=== PATIENT | male | born 1980 | race Caucasian/White ===

== ENCOUNTER 2019-09-16 08:38 | Outpatient (CLI) | payer SELFPAY ==
[2019-09-16 09:10] VITALS: BMI 38.3
--- NOTE | 2019-09-16 09:11 | ECG_ITS ---
NAME OF STUDY: EXERCISE SESTAMIBI STRESS TEST INDICATION: Chest Pain Baseline blood pressure of 125/76 mm Hg, heart rate 75 beats per minute and oxygen saturation 96%. EKG showed normal sinus rhythm, normal axis with nonspecific minimal ST depression. The patient exercised for 6 minutes 25 seconds on a standard Jose protocol. Patient attained a maximum heart rate of 165 beats per minute(92 % of the maximum predicted heart rate) with a blood pressure at the peak exercise of 190/57 mm Hg and oxygen saturation of 95%. The EKG at the peak exercise revealed sinus tachycardia with half to [address] depression not meeting diagnostic criteria for ischemia. Patient did not have any chest pain or any significant arrhythmias with the exercise. During the recovery phase, there were no new changes. There is [address] depression late in recovery with T wave inversion in inferolateral leads. Blood pressure at the end of the recovery phase was 159/77 mm Hg with a heart rate of 99 beats per minute and oxygen saturation 98%. CONCLUSION: 1. Equivocal EKG response to treadmill exercise. 2. No exercise-induced chest pain or cardiac arrhythmia 3. Fair exercise tolerance, attained a maximum of 10.2 METs. Maximum VO2 of 35.7 mL/kg/min. 4. Baseline normal blood pressure with normal response to exercise. 5. Perfusion scan will be documented separately. Electronically Signed On 09-18-2019 16:54:15 CDT by Lelia Amaya M.D. [id number]
--- NOTE | 2019-09-16 09:11 | NMCV_ITS ---
NM lester perf SPECT r/s* [id number] Blade Kasper Age: 39 Gender: M : 1980 Exam Date: 09/16/2019 09:59 Ordering Phys: Lelia Amaya MD ([email or web address]) Technologist: ZOILA Alvarado Exam [facility] Indications: Chest pain STRESS TEST Please see separate stress test report in [facility] for full findings IMAGE PROTOCOL Rest/Stress 1 Exercise Day Radiopharmaceutical Dose (mCi) Administration Site Administered by Rest: Tc-99m 10.5 IV ZOILA Ragland Sestamibi Stress:Tc-99m 32.7 IV ZOILA Alvarado Sestamimariana Rest: 16-Sep-2019 60 Discovery 630 Stress: 16-Sep-2019 15 Discovery 630 Radiopharmaceutical was injected at 85 % maximum heart rate. Images obtained in supine and prone position. SPECT RESULTS Technical Quality: Good Raw Data Analysis: Normal Image Corrections: No attenuation or motion correction applied Summed Stress Score: 4 Summed Rest Score: 2 Summed Difference Score: 2 PERFUSION FINDINGS Small size perfusion abnormality of mild severity of basal to mid inferolateral and apical lateral wall on rest images with mild reversibility noted in mid to apical inferolateral wall on supine stress images. There is improved tracer uptake in basal to mid inferolateral wall on prone stress images. This is likely suggestive of attenuation artifact. FUNCTIONAL RESULTS (calculated via Gated SPECT) Stress Image LV EF (%): 60 Stress EDV (mL):96 TID: 1.07 Stress ESV (mL):38 FUNCTIONAL FINDINGS: The left ventricle is normal in size. Transient Ischemia Dilatation of 1.1. There is normal left ventricular systolic function. The left ventricular ejection fraction is normal with a value of 60%. There is normal left ventricular wall thickening. Normal end-diastolic and end-systolic volumes. IMPRESSIONS 1. Small size perfusion abnormality of mild severity of basal to mid inferolateral and apical lateral tai with improved tracer uptake in basal to mid inferolateral tai on prone stress images. 2. These findings are very likely suggestive of attenuation artifact. 3. Overall left ventricular systolic function is normal without regional wall motion abnormalities. 4. The left ventricular ejection fraction is normal with a value of 60%. 5. No coronary ischemia based on the study. Lelia Amaya MD (Electronically Signed) Final Date: 19 Sep 2019 14:42 S
[2019-09-16 10:59] VITALS: BP 165/71; PULSE 100
== END 2019-09-16 08:39 | disposition home or self-care (01) ==
LOC: RAD 08:40
PROVIDERS: Family Provider Internal Medicine; PCP Family Medicine; Visit Provider Hospitalist
DX: R07.9 Chest pain, unspecified (principal); R94.39 Abnormal result of other cardiovascular function study
CPT/HCPCS: 78452; 93017; A9500

== ENCOUNTER 2021-06-03 02:06 | Emergency (ER) | payer OTHER, SELFPAY ==
[2021-06-03 02:18] VITALS: BP 133/101; PULSE 129; RESP 18; TEMP 37.2; O2SAT 95; BMI 38.3
--- NOTE | 2021-06-03 02:42 | XRR_ITS ---
PROCEDURE INFORMATION: Exam: XR Chest Exam date and time: 06/03/2021 2:42 AM Age: 41 years old Clinical indication: Pain; On breathing; Additional info: Cp TECHNIQUE: Imaging protocol: XR of the chest. Views: 1 view. COMPARISON: CR Chest 1 [place] [id number] 05/12/2015 4:39 AM FINDINGS: Lungs: There are low lung volumes. Otherwise, the lungs are clear. Pleural spaces: Unremarkable. No pleural effusion. No pneumothorax. Heart/Mediastinum: Unremarkable. No cardiomegaly. Bones/joints: Unremarkable. XR/XR chest 1V portable [id number] IMPRESSION: There are low lung volumes. Otherwise, the lungs are clear.
--- NOTE | 2021-06-03 02:42 | ECG_ITS ---
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1980 Requested By: Victor Manuel Ordonez Order Number: [id number] Reading MD: CARLOS MAXWELL Measurements Intervals [place] Rate: 129 P: 66 HI: 159 QRS: 79 QRSD: 91 T: 73 QT: 334 QTc: 490 Interpretive Statements SINUS TACHYCARDIA NONSPECIFIC ST & T-WAVE ABNORMALITY ABNORMAL RHYTHM ECG Compared to ECG 05/12/2015 04:18:16 Sinus rhythm no longer present Possible ischemia no longer present T-wave abnormality still present Electronically Signed On 06-03-2021 19:16:55 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
[2021-06-03 02:55] VITALS: BP 165/107; PULSE 118; RESP 20; TEMP 36.8; O2SAT 94
--- NOTE | 2021-06-03 03:05 | PC.NURSE ---
patient states shaking/tremors worsened at 1600 yesterday. states tremors are normal adn benign but are now worse. states heart rate elevated. increased SOB. respirations even equal and unlabored. noted with shaking to entire body nd can be heard in his voice when speaking.
[2021-06-03 03:10] LABS: Basophils % 0.2 %; Eosinophils # 0.1 10^3/uL (0.0-0.8); Hematocrit 44.8 % (42.0-52.0); Hemoglobin 15.1 g/dL (11.7-16.6); Lymphocytes # 1.8 10^3/uL (0.8-4.8); Lymphocytes % 13.8 %; Mean Corpuscular HGB Conc 33.7 g/dL (30.0-36.0); Mean Corpuscular Hemoglobin 29.7 pg (28.0-34.0); Mean Platelet Volume 9.6 fL (7.4-10.4); Monocytes # 0.7 10^3/uL (0.2-0.9); Monocytes % 5.5 %; Neutrophils # 10.18 10^3/uL (1.8-7.7); Neutrophils % 79.1 %; Nucleated Red Blood Cells % 0 %; Platelet Count 323 10^3/cmm (130-400); Red Blood Count 5.09 10^6/uL (4.1-5.3); Red Cell Distribution Width 12.6 % (12.1-15.1); White Blood Count 12.9 10^3/uL (4.0-10.0)
[2021-06-03 03:21] LABS: D Dimer <= 0.27 ug/mIFEU (0-0.59)
[2021-06-03 03:28] LABS: Troponin(5th) Baseline 6 ng/L (0-15)
[2021-06-03 03:35] LABS: NT Pro B Type Natriuretic Pept 11 pg/mL (0-125); Procalcitonin 0.05 ng/mL (0-0.5)
[2021-06-03 03:46] LABS: Alanine Aminotransferase 17 U/L (0-41); Albumin Level 4.1 g/dL (3.5-5.2); Alkaline Phosphatase 140 IU/L (40-130); Aspartate Amino Transferase 18 U/L (0-40); Blood Urea Nitrogen 12 mg/dL (6-20); Calcium 8.8 mg/dL (8.5-10.5); Carbon Dioxide 22 mmol/L (22-29); Chloride 100 mmol/L (98-107); Globulin 3.2 g/dL (1.3-4.6); Glomerular Filtration Rate 92.1 mL/min (90-130); Glucose 155 mg/dL (65-115); Osmolality Calculated 279 mOsm/kg (285-295); Sodium 133 mmol/L (136-145); Total Bilirubin 0.3 mg/dL (0.15-1.2); Total Protein 7.3 g/dL (6.6-8.7)
[2021-06-03 03:54] VITALS: BP 158/109; PULSE 109; RESP 20; TEMP 36.7; O2SAT 94
[2021-06-03] MEDS: metoprolol tartrate 1 mg/1 mL SDV 5 mL 5 MG IVP (03:55)
--- NOTE | 2021-06-03 04:42 | ECG_ITS ---
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
[2021-06-03 05:11] LABS: Troponin 5 2HR 8.96 ng/L (0-15)
[2021-06-03 06:45] LABS: SARS Covid-2 Antigen Negative (Negative)
--- NOTE | 2021-06-03 07:16 | PC.NURSE ---
Nothing charted on this patient by the previous nurse for at least 5 hrs. Pt was up for DC upon this nurse's arrival.
[2021-06-03] MEDS: dexamethasone 10 mg/mL INJ 6 MG IVP (07:18)
[2021-06-03] MEDS: doxycycline 100 mg Tablet PO (07:19)
[2021-06-03 07:51] LABS: Troponin 5 2HR Delta 2.96 ABS# (0-10)
--- NOTE | 2021-06-03 08:14 | ED_ITS ---
HPI - Chest Pain General: Chief Complaint: Chest Pain Stated Complaint: Chest pressure, SOB, high heart rate Time Seen by Provider: 06/03/21 02:42 Source: patient History of Present Illness: 41-year-old gentleman complaining of some mild shortness of breath, mild cough, for the last couple of days. He notes his heart rate is up as well he has a history of diabetes he tells me. No known contacts with Covid patients. He has had some chest pressure, no significant pain No history of coronary disease. MD complaint: chest discomfort and other Onset (ago): day(s) Pain radiation: none Quality: tightness and aching Relieving factors: nothing Exacerbating factors: nothing Associated symptoms: Reports dyspnea; Deny abdominal pain, fever(s), nausea or vomiting Risk Factors: Coronary artery disease risk factors: diabetes and smoking history Review of Systems Const: Denies: fever(s) or chills ENMT: Denies: throat pain Card: Reports: chest pain (More pressure than pain) Resp: Reports: dyspnea and non-productive cough; Denies: productive cough GI: Denies: abdominal pain, nausea or vomiting PFSH ED PFSH: Medical History (Updated 06/03/21 @ 06:54 by Victor Manuel Mueller DO) Cigarette smoker Generalized anxiety disorder Major depressive disorder, recurrent, in full remission Obsessive-compulsive disorder, unspecified Obstructive sleep apnea Panic disorder [episodic paroxysmal anxiety] Psychiatric care Family History (Updated 08/18/19 @ 10:34 by Nickie Benitez RN) Father CAD (coronary artery disease) Family/Other CAD (coronary artery disease) Mother Hypertension Social History (Updated 05/12/19 @ 09:57 by Valeria Thomas) Smoking and tobacco status: current every day smoker cigarettes Packs smoked per day: 1 Years cigarettes smoked: 25 Second hand smoke exposure: No Smoking risk assessment/counseling performed?: No Reason smoking risk assessment not done: patient refused Physical Exam Const: COMMON NORMALS: no acute distress GENERAL APPEARANCE: cooperative HENMT: COMMON NORMALS: normocephalic, atraumatic and Normal external nose present HEAD & SCALP: normocephalic and atraumatic NOSE: Normal external nose present Eye: COMMON NORMALS: Equal, round and reactive pupils present and EOMs intact bilaterally PUPIL: Yes Equal, round and reactive pupils present Chest: COMMONS NORMALS: normal inspection of the chest Resp: COMMON NORMALS: normal respiratory effort, No use of accessory muscles and clear to auscultation bilaterally AUSCULTATION: clear to auscultation bilaterally Cardio: COMMON NORMALS: regular rhythm RATE: tachycardic RHYTHM: regular rhythm GI: COMMON NORMALS: Normal to inspection, nondistended, normoactive bowel sounds present Course Vital Signs: Vital signs: Vital Signs Temperature 98.1 F 06/03/21 03:54 Pulse Rate 109 H 06/03/21 03:54 Respiratory Rate 20 H 06/03/21 03:54 Blood Pressure 158/109 06/03/21 03:54 Pulse Oximetry 94 06/03/21 03:54 MDM - Chest Pain Medical Decision Making Mild leukocytosis. D-dimer is nondetectable. Troponin was 6, with a delta of 3 at 2 hours. Patient is pain-free on my exam. He was tachycardic. This improved to some degree with metoprolol. Chest x-ray does not reveal an infiltrate. COVID-19 rapid test is negative. He will be treated for bronchitis. He is encouraged to return for return of pain, worsening shortness of breath, etc. He was instructed to repeat a rapid Covid test in 48 hours, especially if still symptomatic. Lab Data : 06/03/21 02:55 06/03/21 02:55 Radiology Impressions Chest X-Ray 06/03/21 02:42 IMPRESSION: There are low lung volumes. Otherwise, the lungs are clear. Laboratory Results WBC 12.9 10^3/uL (4.0-10.0) H 06/03/21 02:55 RBC 5.09 10^6/uL (4.1-5.3) 06/03/21 02:55 Hgb 15.1 g/dL (11.7-16.6) 06/03/21 02:55 Hct 44.8 % (42.0-52.0) 06/03/21 02:55 MCV 88.0 fl (80-94) 06/03/21 02:55 MCH 29.7 pg (28.0-34.0) 06/03/21 02:55 MCHC 33.7 g/dL (30.0-36.0) 06/03/21 02:55 RDW 12.6 % (12.1-15.1) 06/03/21 02:55 Plt Count 323 10^3/cmm (130-400) 06/03/21 02:55 MPV 9.6 fL (7.4-10.4) 06/03/21 02:55 Neut % (Auto) 79.1 % 06/03/21 02:55 Lymph % (Auto) 13.8 % 06/03/21 02:55 [place] % (Auto) 5.5 % 06/03/21 02:55 Eos % (Auto) 1.0 % 06/03/21 02:55 Baso % (Auto) 0.2 % 06/03/21 02:55 Neut # (Auto) 10.18 10^3/uL (1.8-7.7) H 06/03/21 02:55 Lymph # (Auto) 1.8 10^3/uL (0.8-4.8) 06/03/21 02:55 [place] # (Auto) 0.7 10^3/uL (0.2-0.9) 06/03/21 02:55 Eos # (Auto) 0.1 10^3/uL (0.0-0.8) 06/03/21 02:55 Baso # (Auto) 0.0 10^3/uL (0.0-0.1) 06/03/21 02:55 Nucleated RBC % (auto) 0 % 06/03/21 02:55 Nucleated RBCs # 0.0 /100WBC 06/03/21 02:55 D-Dimer <= 0.27 ug/mIFEU (0-0.59) 06/03/21 02:55 Sodium 133 mmol/L (136-145) L 06/03/21 02:55 Potassium 4.0 mmol/L (3.5-5.1) 06/03/21 02:55 Chloride 100 mmol/L (98-107) 06/03/21 02:55 Carbon Dioxide 22 mmol/L (22-29) 06/03/21 02:55 Anion Gap 15.0 (5-19) 06/03/21 02:55 BUN 12 mg/dL (6-20) 06/03/21 02:55 Creatinine 0.9 mg/dL (0.7-1.2) 06/03/21 02:55 GFR Calculation 92.1 mL/min (90-130) 06/03/21 02:55 Glucose 155 mg/dL (65-115) H 06/03/21 02:55 Calculated Osmolality 279 mOsm/kg (285-295) L 06/03/21 02:55 Calcium 8.8 mg/dL (8.5-10.5) 06/03/21 02:55 Total Bilirubin 0.3 mg/dL (0.15-1.2) 06/03/21 02:55 AST 18 U/L (0-40) 06/03/21 02:55 ALT 17 U/L (0-41) 06/03/21 02:55 Alkaline Phosphatase 140 IU/L (40-130) H 06/03/21 02:55 Troponin T Baseline 6 ng/L (0-15) 06/03/21 02:55 Troponin T 120 Minute 8.96 ng/L (0-15) 06/03/21 04:40 Delta Troponin T 2.96 ABS# (0-10) 06/03/21 04:40 NT-Pro-B Natriuret Pep 11 pg/mL (0-125) 06/03/21 02:55 Total Protein 7.3 g/dL (6.6-8.7) 06/03/21 02:55 Albumin 4.1 g/dL (3.5-5.2) 06/03/21 02:55 Globulin 3.2 g/dL (1.3-4.6) 06/03/21 02:55 Procalcitonin 0.05 ng/mL (0-0.5) 06/03/21 02:55 SARS-CoV-2 Ag (Rapid) Negative (Negative) 06/03/21 03:52 Discharge Plan Discharge Patient Disposition: Home Clinical Impression: Bronchitis Condition: Stable Prescriptions: New dexamethasone 6 mg tablet 6 mg PO DAILY Qty: 5 0RF doxycycline hyclate 100 mg capsule 100 mg PO Q12H 7 Days Qty: 14 0RF No Action Prilosec OTC 20 mg tablet,delayed release (DR/EC) 20 mg PO DAILY 0RF cetirizine [24Hour Allergy] 10 mg tablet 10 mg PO DAILY 0RF fluoxetine 20 mg capsule 20 mg PO DAILY Qty: 30 11RF fluoxetine 10 mg capsule 10 mg PO DAILY Qty: 7 0RF Discharge Orders: Discharge ED (Routine); Ordered 06/03/21 Ordered By: Victor Manuel Mueller Referrals: Jo Musa MD [Primary Care Provider] - 4-7 days Discharge Diet: Advance as tolerated Discharge Activity: Increase activity as tolerated Patient Instructions: Acute Bronchitis (ED) Activity Restrictions/Additional Instructions: If you are still symptomatic, consider retesting for COVID-19 in 48 hours or so. Return to the emergency room for worsening shortness of breath despite treatment, chest pain, fever greater than 100 despite 2-3 doses of antibiotics, chest pain, altered mental status, any other concerning symptoms. Medications as directed. Watch your blood sugar while on medication. Coding Level of Care Code ED [place] Drier for Chg Fwd Exam Detailed
== END 2021-06-03 07:26 | disposition home or self-care (01) ==
PROVIDERS: Emergency Provider Emergency Medicine; PCP Family Medicine
DX: J40 Bronchitis, not specified as acute or chronic (principal); F17.210 Nicotine dependence, cigarettes, uncomplicated; Z20.822 Contact with and (suspected) exposure to COVID-19
CPT/HCPCS: 36415; 71045; 80053; 83880; 84145; 84484; 85025; 85378; 87426; 93005; 96374; 99284; J1100; J3490

== ENCOUNTER 2021-09-10 06:00 | Outpatient (RCR) | payer OTHER, SELFPAY | END 2021-10-02 23:59 | disposition home or self-care (01) | LOC: TPT 06:00 | PROVIDERS: PCP Family Medicine; Referring Provider Nurse Practitioner Family; Visit Provider Nurse Practitioner Family | DX: R42 Dizziness and giddiness (principal) | CPT/HCPCS: 97162 ==

== ENCOUNTER 2021-10-08 06:00 | Outpatient (RCR) | payer OTHER, MEDICAID, SELFPAY | END 2021-11-01 23:59 | disposition home or self-care (01) | LOC: TPT 06:00 | PROVIDERS: PCP Family Medicine; Referring Provider Nurse Practitioner Family; Visit Provider Nurse Practitioner Family | DX: R42 Dizziness and giddiness (principal) | CPT/HCPCS: 97110; 97140; 97162 ==

== ENCOUNTER 2021-11-02 06:00 | Outpatient (RCR) | payer OTHER, MEDICAID, SELFPAY | END 2021-12-02 23:59 | disposition home or self-care (01) | LOC: TPT 06:00 | PROVIDERS: PCP Family Medicine; Referring Provider Nurse Practitioner Family; Visit Provider Nurse Practitioner Family | DX: M54.2 Cervicalgia (principal) | CPT/HCPCS: 97110; 97140 ==

== ENCOUNTER 2021-12-03 06:00 | Outpatient (RCR) | payer OTHER, MEDICAID, SELFPAY | END 2022-01-02 23:59 | disposition home or self-care (01) | LOC: TPT 06:00 | PROVIDERS: PCP Family Medicine; Referring Provider Nurse Practitioner Family; Visit Provider Nurse Practitioner Family | DX: M54.2 Cervicalgia (principal) | CPT/HCPCS: 97110; 97140 ==

== ENCOUNTER 2023-07-28 14:00 | Outpatient (CLI) | payer MEDICAID, SELFPAY | END 2023-07-28 14:01 | disposition home or self-care (01) | LOC: SLEEP 07-29 09:41 | PROVIDERS: PCP Family Medicine; Visit Provider Internal Medicine | DX: G47.33 Obstructive sleep apnea (adult) (pediatric) (principal) | CPT/HCPCS: G0399 ==

== ENCOUNTER → 2023-09-11 10:07 | Outpatient (BNVA) | payer MEDICAID, SELFPAY | PROVIDERS: PCP Clinical Nurse Specialist Adult Health; Visit Provider Clinical Nurse Specialist Adult Health | DX: G47.33 Obstructive sleep apnea (adult) (pediatric) (principal); E11.9 Type 2 diabetes mellitus without complications | CPT/HCPCS: 80053; 80061; 83036; 84443; 85025 ==

== ENCOUNTER → 2023-10-22 06:06 | Outpatient (CLI) | payer MEDICAID, SELFPAY ==
--- NOTE | 2023-10-22 06:30 | USR_ITS ---
PROCEDURE INFORMATION: Exam: US Abdomen, Limited; Appendix Exam date and time: 10/22/2023 6:32 AM Age: 43 years old Clinical indication: Abdominal pain; Acute; Additional info: Rlq pain, focus on appendix to rule out inflammation please TECHNIQUE: Imaging protocol: Real time ultrasound of the abdomen with image documentation. Limited exam focused on the appendix. COMPARISON: No relevant prior studies available. FINDINGS: Appendix: No obvious abnormalities are seen at the area of interest in the right lower quadrant. The appendix is not visualized. US/US appendix [id number] IMPRESSION: The appendix is not identified. Therefore the diagnosis of appendicitis cannot be made or excluded. Consider repeat ultrasound if symptoms persist or progress, alternatively a CT with oral and IV contrast could be useful for further assessment if needed clinically.
== END | disposition home or self-care (01) ==
LOC: RAD 06:05
PROVIDERS: PCP Clinical Nurse Specialist Adult Health; Visit Provider Clinical Nurse Specialist Adult Health
DX: R10.31 Right lower quadrant pain (principal)
CPT/HCPCS: 76705

== ENCOUNTER 2023-10-28 08:59 | Outpatient (CLI) | payer MEDICAID, SELFPAY ==
--- NOTE | 2023-10-28 10:00 | CTR_ITS ---
PROCEDURE INFORMATION: Exam: CT Abdomen And Pelvis With Contrast Exam date and time: 10/28/2023 10:17 AM Age: 43 years old Clinical indication: Abdominal pain; Localized; Right lower quadrant (rlq); Prior surgery; Surgery date: 6+ months; Surgery type: Gb; Patient HX: Right lower quadrant pain x 1 month; Additional info: Right lower quadrant pain, with oral and iv contract please. Abd US negative. TECHNIQUE: Imaging protocol: Computed tomography of the abdomen and pelvis with contrast. Radiation optimization: All CT scans at this facility use at least one of these dose optimization techniques: automated exposure control; mA and/or kV adjustment per patient size (includes targeted exams where dose is matched to clinical indication); or iterative reconstruction. Contrast material: OMNI 350; Contrast volume: 100 ml; Contrast route: INTRAVENOUS (IV); COMPARISON: [place] appendix [id number] 10/22/2023 6:32 AM RADIATION DOSE METRICS: Total DLP (mGy-cm): 880.53 FINDINGS: Lungs: Visualized lung bases are clear. Liver: The liver is unremarkable. Gallbladder and biliary ducts: Status post cholecystectomy. No significant biliary ductal dilation. Pancreas: The pancreas is unremarkable. Spleen: The spleen is unremarkable. Adrenal glands: The adrenal glands are unremarkable. Kidneys and ureters: Kidneys are normal. No hydronephrosis or nephrolithiasis. Stomach and bowel: Minimal scattered colonic diverticulosis. No CT evidence of acute diverticulitis. Nonobstructive bowel-gas pattern. Appendix: The appendix is normal. Intraperitoneal space: No significant free fluid in the abdomen or pelvis. Vasculature: Abdominal aorta and its major branches are within normal limits. Lymph nodes: No suspicious lymphadenopathy. Urinary bladder: Urinary bladder is within normal limits. Reproductive: Prostate is mildly enlarged. Bones/joints: No acute osseous findings. Soft tissues: Visualized superficial soft tissues are within normal limits. CT/CT abdomen pelvis w con* [id number] IMPRESSION: 1. No acute findings in the abdomen/pelvis. 2. Prostate is mildly enlarged. Recommend correlation with serum PSA.
[2023-10-28] MEDS: iohexol 350 mg/mL 500 mL Btl (per mL) PO (10:20)
[2023-10-28] MEDS: iohexol 350 mg/mL 500 mL Btl (per mL) IV (10:21)
== END 2023-10-28 09:00 | disposition home or self-care (01) ==
LOC: RAD 08:59
PROVIDERS: PCP Clinical Nurse Specialist Adult Health; Visit Provider Clinical Nurse Specialist Adult Health
DX: R10.31 Right lower quadrant pain (principal); R82.71 Bacteriuria; Z90.49 Acquired absence of other specified parts of digestive tract
CPT/HCPCS: 74177; 81003; 87086; Q9967

== ENCOUNTER 2023-12-18 11:53 | Outpatient (CLI) | payer MEDICAID, SELFPAY ==
--- NOTE | 2023-12-18 11:56 | XR_ITS ---
WS: [id number] Examination: XR shoulder LT min 2V* [id number] Reason for Exam: pulled his shoulder while lifting plywood 2 weeks ago Date: December 18, 2023 Comparison: None. Findings: The bone density is maintained. There is no destruction There is no displaced fracture or dislocation. Mild AC joint degenerative changes are noted XR/XR shoulder LT min 2V* [id number] Impression: No acute bony abnormality is appreciated.
== END 2023-12-18 11:54 | disposition home or self-care (01) ==
PROVIDERS: PCP Clinical Nurse Specialist Adult Health; Visit Provider Clinical Nurse Specialist Adult Health
DX: M25.512 Pain in left shoulder (principal)
CPT/HCPCS: 73030

== ENCOUNTER → 2024-07-12 14:08 | Outpatient (BNVA) | payer MEDICAID, SELFPAY | PROVIDERS: PCP Clinical Nurse Specialist Adult Health; Visit Provider Podiatrist Foot & Ankle Surgery | DX: M79.671 Pain in right foot (principal); M72.2 Plantar fascial fibromatosis; E11.69 Type 2 diabetes mellitus with other specified complication; F17.210 Nicotine dependence, cigarettes, uncomplicated | CPT/HCPCS: 73630 ==

== ENCOUNTER → 2024-07-14 08:03 | Outpatient (BNVA) | payer MEDICAID, SELFPAY | PROVIDERS: PCP Clinical Nurse Specialist Adult Health; Visit Provider Clinical Nurse Specialist Adult Health | DX: R30.0 Dysuria (principal) | CPT/HCPCS: 81000; 87086 ==

== ENCOUNTER 2024-10-06 03:28 | Observation (INO) | payer MEDICAID, SELFPAY ==
[2024-10-06] VITALS (33 sets, daily range): BP systolic 117–147; BP diastolic 67–88; PULSE 68–104; RESP 12–22; TEMP 36.8–36.9; O2SAT 90–99; BMI 34.2
--- NOTE | 2024-10-06 03:31 | XRR_ITS ---
PROCEDURE INFORMATION: Exam: XR Chest Exam date and time: 10/06/2024 3:32 AM Age: 44 years old Clinical indication: Pain; Chest pressure; Additional info: Chest pain TECHNIQUE: Imaging protocol: Radiologic exam of the chest. Views: 1 view. COMPARISON: CR XR chest 1V portable [id number] 06/03/2021 2:54 AM FINDINGS: Lungs: Unremarkable. No consolidation. Pleural spaces: Unremarkable. No pleural effusion. No pneumothorax. Heart/Mediastinum: Unremarkable. No cardiomegaly. Bones/joints: Unremarkable. XR/XR chest 1V portable [id number] IMPRESSION: No acute findings.
--- NOTE | 2024-10-06 03:34 | ECG_ITS ---
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1980 Requested By: Dustin Stevens Order Number: [id number] Isela MD: CARLOS MAXWELL Measurements Intervals [place] Rate: 100 P: 48 AK: 154 QRS: 51 QRSD: 94 T: 211 QT: 315 QTc: 406 Interpretive Statements SINUS TACHYCARDIA ST DEVIATION AND MODERATE T-WAVE ABNORMALITY, CONSIDER LATERAL ISCHEMIA [-0.1+ mV T-WAVE IN I/aVL/V5/V6] ST DEVIATION AND MODERATE T-WAVE ABNORMALITY, CONSIDER INFERIOR ISCHEMIA [-0.1+ mV T-WAVE IN II/aVF] Compared to ECG 06/03/2021 05:01:34 Possible ischemia now present T-wave abnormality still present Electronically Signed On 10-06-2024 22:50:48 CDT by CARLOS MAXWELL [id number]
[2024-10-06 03:42] LABS: Basophils % 0.5 %; Eosinophils # 0.5 10^3/uL (0.0-0.8); Eosinophils % 6.3 %; Hematocrit 44.4 % (37-53); Lymphocytes # 2.4 10^3/uL (0.8-4.8); Lymphocytes % 32.4 %; Mean Corpuscular HGB Conc 32.4 g/dL (30-55); Mean Corpuscular Hemoglobin 28.1 pg (27-33); Mean Corpuscular Volume 86.5 fl (82-101); Mean Platelet Volume 9.2 fL (7.4-10.4); Monocytes # 0.8 10^3/uL (0.2-0.9); Neutrophils # 3.71 10^3/uL (1.8-7.7); Neutrophils % 49.5 %; Nucleated Red Blood Cells % 0 %; Platelet Count 292 10^3/cmm (157-399); Red Blood Count 5.13 10^6/uL (3.85-5.65); Red Cell Distribution Width 12.3 % (12.1-15.1); White Blood Count 7.48 10^3/uL (3.29-11.43)
[2024-10-06 04:00] LABS: Troponin(5th) Baseline 7 ng/L (0-15)
--- NOTE | 2024-10-06 04:01 | CTR_ITS ---
PROCEDURE INFORMATION: Exam: CTA Chest With Contrast Exam date and time: 10/06/2024 4:20 AM Age: 44 years old Clinical indication: Pain; Chest pressure; Additional info: Chest pain, tachycardia, ekg changes appearance of strain TECHNIQUE: Imaging protocol: Computed tomographic angiography of the chest with contrast. Exam focused on the arteries. 3D rendering (Not supervised by radiologist): MIP and/or 3D reconstructed images were created by the technologist. Radiation optimization: All CT scans at this facility use at least one of these dose optimization techniques: automated exposure control; mA and/or kV adjustment per patient size (includes targeted exams where dose is matched to clinical indication); or iterative reconstruction. Contrast material: OMNI 350; Contrast volume: 100 ml; Contrast route: INTRAVENOUS (IV); COMPARISON: CR (CHEST, ) 10/06/2024 3:32 AM RADIATION DOSE METRICS: Total DLP (mGy-cm): 445.95 FINDINGS: Pulmonary arteries: No evidence of pulmonary artery emboli. Aorta: Thoracic aorta is within normal limits. Thyroid: Partially imaged thyroid is normal in appearance. Lungs: Subcentimeter calcified granuloma in the right lower lobe. Faint ground-glass opacities throughout the bilateral lungs. Pleural spaces: No pleural effusion. No pneumothorax. Heart: Heart is normal in size. No pericardial effusion. Lymph nodes: Multiple small partially calcified right hilar and subcarinal lymph nodes. No pathologically enlarged lymphadenopathy. Bones/joints: No acute osseous findings. Soft tissues: Visualized superficial soft tissues are within normal limits. CT/CT angio chest PE protcl [id number] IMPRESSION: 1. Faint ground-glass opacities throughout the bilateral lungs. This may be artifactual or may represent mild pulmonary edema. 2. No evidence of pulmonary artery emboli.
[2024-10-06 04:06] LABS: Alanine Aminotransferase 18 U/L (0-41); Albumin Level 4.1 g/dL (3.5-5.2); Alkaline Phosphatase 155 U/L (40-130); Anion Gap 16.9 (5-19); Aspartate Amino Transferase 21 U/L (0-40); Blood Urea Nitrogen 15 mg/dL (6-20); Calcium 9.5 mg/dL (8.5-10.5); Carbon Dioxide 22 mmol/L (22-29); Chloride 103 mmol/L (98-107); Creatinine Clr Calc Pharmacy 146.2744; Globulin 2.6 g/dL (1.3-4.6); Glomerular Filtration Rate 104.1 mL/min (90-130); Glucose 143 mg/dL (65-115); Osmolality Calculated 289 mOsm/kg (285-295); Potassium 3.9 mmol/L (3.5-5.1); Sodium 138 mmol/L (136-145); Total Bilirubin 0.4 mg/dL (0.15-1.2); Total Protein 6.7 g/dL (6.6-8.7)
[2024-10-06] MEDS: sodium chloride 0.9% 500 ML 999 ML IV (04:12)
[2024-10-06] MEDS: morphine 4 mg/mL SDV 1 mL IVP (04:12)
[2024-10-06] MEDS: iohexol 350 mg/mL 500 mL Btl (per mL) IV (04:22)
[2024-10-06 06:09] LABS: Troponin 5 2HR 7.83 ng/L (0-15); Troponin 5 2HR Delta 0.83 ABS# (0-10)
--- NOTE | 2024-10-06 06:10 | ECG_ITS ---
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1980 Requested By: Judah Khan Order Number: [id number] Reading MD: CARLOS MAXWELL Measurements Intervals [employer] Rate: 88 P: 54 MT: 168 QRS: 61 QRSD: 90 T: 211 QT: 332 QTc: 404 Interpretive Statements SINUS RHYTHM MODERATE T-WAVE ABNORMALITY, CONSIDER ANTEROLATERAL ISCHEMIA [-0.1+ mV T-WAVE IN V3-V6] MODERATE T-WAVE ABNORMALITY, CONSIDER INFERIOR ISCHEMIA [-0.1+ mV T-WAVE IN II/aVF] Compared to ECG 10/06/2024 03:34:26 Sinus tachycardia no longer present T-wave abnormality still present Possible ischemia still present Electronically Signed On 10-06-2024 22:51:11 CDT by CARLOS MAXWELL [id number] [id number]
--- NOTE | 2024-10-06 06:25 | W.ED.CHESTPA ---
Documented by User: Dustin Ariza MD 10/06/24 06:31 HPI - Chest Pain General: Chief Complaint: Chest Pain Stated Complaint: cp,stress Time Seen by Provider: 10/06/24 03:30 History of Present Illness: Patient is a 44-year-old male seen for chest pain which came on yesterday around noon while fishing which he describes as pressure-like, 4 out of 10, not necessarily worse with exertion or with deep inspiration. He has no history of heart disease of which he is aware. He quit smoking in May. He denies concomitant or antecedent lightheadedness, shortness of breath, nausea, vomiting associated with the pain. He has not taken anything for the pain. He has no other acute complaints. Related Data Home Medications ?Medication ?Instructions ?Recorded ?Confirmed cetirizine 10 mg tablet (24Hour 10 mg PO DAILY 08/18/19 07/12/24 Allergy) omeprazole magnesium 20 mg 20 mg PO DAILY 08/18/19 07/12/24 tablet,delayed release (Prilosec OTC) Previous Rx's ?Medication ?Instructions ?Recorded cyclobenzaprine 5 mg tablet 5 mg PO TID PRN muscle spasm #30 10/21/23 tabs meloxicam 15 mg tablet 15 mg PO DAILY #14 tabs 07/12/24 ciprofloxacin HCl 500 mg tablet 500 mg PO BID 5 days #10 tabs 07/13/24 (Cipro) Allergies Allergy/AdvReac Type Severity Reaction Status Date / Time grass pollen Allergy Unknown Unknown Verified 07/12/24 14:18 sulfamethoxazole (From Allergy Unknown Unknown Verified 07/12/24 14:18 Bactrim) trimethoprim (From Bactrim) Allergy Unknown Unknown Verified 07/12/24 14:18 PFSH ED PFSH: Medical History Palpitations Benign familial tremor Diet-controlled type 2 diabetes mellitus GERD (gastroesophageal reflux disease) Seasonal allergies 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 Obstructive sleep apnea uses CPAP machine Cigarette smoker 30 pack year history Obsessive-compulsive disorder, unspecified Generalized anxiety disorder Major depressive disorder, recurrent, in full remission Panic disorder [episodic paroxysmal anxiety] Surgical History History of tooth extraction all teeth extracted 2024 Hx of sinus surgery deviated septum Hx of cholecystectomy Family History Father CAD (coronary artery disease) Colon cancer Family/Other CAD (coronary artery disease) Mother Hypertension Social History Smoking and tobacco/nicotine status: former use of tobacco/nicotine Second hand smoke exposure: No Alcohol intake: never Substance/Drug Use: never Household members: spouse Marital status: Physical Exam Const: COMMON NORMALS: no acute distress, patient oriented x3 and alert HENMT: COMMON NORMALS: normocephalic and atraumatic HEAD & SCALP: normocephalic and atraumatic Eye: COMMON NORMALS: Equal, round and reactive pupils present, EOMs intact bilaterally and no scleral icterus PUPIL: Yes Equal, round and reactive pupils present Chest: OTHER: Chest pain not reproducible with palpation or deep inspiration. Resp: COMMON NORMALS: normal respiratory effort and No retractions Cardio: COMMON NORMALS: regular rate, regular rhythm and No murmurs present (Cardio) RATE: regular rate RHYTHM: regular rhythm GI: COMMON NORMALS: Normal to inspection, nondistended, normoactive bowel sounds present, Soft to palpation and non-tender PALPATION: Yes Soft to palpation Neuro: COMMON NORMALS: patient oriented x3 SENSORIUM/ORIENTATION: Yes alert Skin: COMMON NORMALS: no rashes or lesions noted GENERAL SKIN EXAM: no rashes or lesions noted Course Vital Signs: Vital signs: Vital Signs Temperature 98.2 F 10/06/24 03:29 Pulse Rate 87 10/06/24 04:37 Respiratory Rate 16 10/06/24 04:37 Blood Pressure 129/72 10/06/24 04:37 Pulse Oximetry 94 10/06/24 04:37 Oxygen Delivery Me thod Room Air 10/06/24 04:37 MDM - Chest Pain Medical Decision Making In summary, patient is a 44-year-old male seen for chest pain which he describes as pressure-like which has been ongoing for over 12 hours at this time. Initial troponin is not elevated. EKG does show new and worrisome changes with T wave inversions in sign of strain in the inferior and lateral leads. Pertinent details of the case were shared with the oncoming emergency physician who will help facilitate ultimate disposition based on an cardiology recommendations. Pain is better with morphine. Lab Data 10/06/24 03:39 10/06/24 03:39 Radiology Impressions Chest X-Ray 10/06/24 03:31 IMPRESSION: No acute findings. Chest CTA 10/06/24 04:01 IMPRESSION: 1. Faint ground-glass opacities throughout the bilateral lungs. This may be artifactual or may represent mild pulmonary edema. 2. No evidence of pulmonary artery emboli. Laboratory Results WBC 7.48 10^3/uL (3.29-11.43) 10/06/24 03:39 RBC 5.13 10^6/uL (3.85-5.65) 10/06/24 03:39 Hgb 14.40 g/dL (11.27-16.99) 10/06/24 03:39 Hct 44.4 % (37-53) 10/06/24 03:39 MCV 86.5 fl (82-101) 10/06/24 03:39 MCH 28.1 pg (27-33) 10/06/24 03:39 MCHC 32.4 g/dL (30-55) 10/06/24 03:39 RDW 12.3 % (12.1-15.1) 10/06/24 03:39 Plt Count 292 10^3/cmm (157-399) 10/06/24 03:39 MPV 9.2 fL (7.4-10.4) 10/06/24 03:39 Neut % (Auto) 49.5 % 10/06/24 03:39 Lymph % (Auto) 32.4 % 10/06/24 03:39 Baldwin % (Auto) 11.0 % 10/06/24 03:39 Eos % (Auto) 6.3 % 10/06/24 03:39 Baso % (Auto) 0.5 % 10/06/24 03:39 Neut # (Auto) 3.71 10^3/uL (1.8-7.7) 10/06/24 03:39 Lymph # (Auto) 2.4 10^3/uL (0.8-4.8) 10/06/24 03:39 Baldwin # (Auto) 0.8 10^3/uL (0.2-0.9) 10/06/24 03:39 Eos # (Auto) 0.5 10^3/uL (0.0-0.8) 10/06/24 03:39 Baso # (Auto) 0.0 10^3/uL (0.0-0.1) 10/06/24 03:39 Nucleated RBC % (auto) 0 % 10/06/24 03:39 Nucleated RBCs # 0.0 /100WBC 10/06/24 03:39 Sodium 138 mmol/L (136-145) 10/06/24 03:39 Potassium 3.9 mmol/L (3.5-5.1) 10/06/24 03:39 Chloride 103 mmol/L (98-107) 10/06/24 03:39 Carbon Dioxide 22 mmol/L (22-29) 10/06/24 03:39 Anion Gap 16.9 (5-19) 10/06/24 03:39 BUN 15 mg/dL (6-20) 10/06/24 03:39 Creatinine 0.8 mg/dL (0.7-1.2) 10/06/24 03:39 GFR Calculation 104.1 mL/min (90-130) 10/06/24 03:39 Glucose 143 mg/dL (65-115) H 10/06/24 03:39 Calculated Osmolality 289 mOsm/kg (285-295) 10/06/24 03:39 Calcium 9.5 mg/dL (8.5-10.5) 10/06/24 03:39 Total Bilirubin 0.4 mg/dL (0.15-1.2) 10/06/24 03:39 AST 21 U/L (0-40) 10/06/24 03:39 ALT 18 U/L (0-41) 10/06/24 03:39 Alkaline Phosphatase 155 U/L (40-130) H 10/06/24 03:39 Troponin T Baseline 7 ng/L (0-15) 10/06/24 03:39 Troponin T 120 Minute 7.83 ng/L (0-15) 10/06/24 05:40 Delta Troponin T 0.83 ABS# (0-10) 10/06/24 05:40 Total Protein 6.7 g/dL (6.6-8.7) 10/06/24 03:39 Albumin 4.1 g/dL (3.5-5.2) 10/06/24 03:39 Globulin 2.6 g/dL (1.3-4.6) 10/06/24 03:39 EKG Data EKG 1: Interpretation: Time?333?sinus tachycardia, rate of 100, mild aVR elevation and [address] depression and T wave inversions in the inferior and lateral leads which are new when compared with prior studies on file. 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 [employer] Documented by User: Judah Ham DO 10/06/24 06:42 HPI - Chest Pain General: Chief Complaint: Chest Pain Stated Complaint: cp,stress Time Seen by Provider: 10/06/24 03:30 Related Data Home Medications ?Medication ?Instructions ?Recorded ?Confirmed cetirizine 10 mg tablet (24Hour 10 mg PO DAILY 08/18/19 07/12/24 Allergy) omeprazole magnesium 20 mg 20 mg PO DAILY 08/18/19 07/12/24 tablet,delayed release (Prilosec OTC) Previous Rx's ?Medication ?Instructions ?Recorded cyclobenzaprine 5 mg tablet 5 mg PO TID PRN muscle spasm #30 10/21/23 tabs meloxicam 15 mg tablet 15 mg PO DAILY #14 tabs 07/12/24 ciprofloxacin HCl 500 mg tablet 500 mg PO BID 5 days #10 tabs 07/13/24 (Cipro) Allergies Allergy/AdvReac Type Severity Reaction Status Date / Time grass pollen Allergy Unknown Unknown Verified 07/12/24 14:18 sulfamethoxazole (From Allergy Unknown Unknown Verified 07/12/24 14:18 Bactrim) trimethoprim (From Bactrim) Allergy Unknown Unknown Verified 07/12/24 14:18 PFSH ED PFSH: Medical History Palpitations Benign familial tremor Diet-controlled type 2 diabetes mellitus GERD (gastroesophageal reflux disease) Seasonal allergies 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 Obstructive sleep apnea uses CPAP machine Cigarette smoker 30 pack year history Obsessive-compulsive disorder, unspecified Generalized anxiety disorder Major depressive disorder, recurrent, in full remission Panic disorder [episodic paroxysmal anxiety] Surgical History History of tooth extraction all teeth extracted 2023 Hx of sinus surgery deviated septum Hx of cholecystectomy Family History Father CAD (coronary artery disease) Colon cancer Family/Other CAD (coronary artery disease) Mother Hypertension Social History Smoking and tobacco/nicotine status: former use of tobacco/nicotine Second hand smoke exposure: No Alcohol intake: never Substance/Drug Use: never Household members: spouse Marital status: Course Vital Signs: Vital signs: Vital Signs Temperature 98.2 F 10/06/24 03:29 Pulse Rate 87 10/06/24 04:37 Respiratory Rate 16 10/06/24 04:37 Blood Pressure 129/72 10/06/24 04:37 Pulse Oximetry 94 10/06/24 04:37 Oxygen Delivery Me thod Room Air 10/06/24 04:37 MDM - Chest Pain Medical Decision Making In summary, patient is a 44-year-old male seen for chest pain which he describes as pressure-like which has been ongoing for over 12 hours at this time. Initial troponin is not elevated. EKG does show new and worrisome changes with T wave inversions in sign of strain in the inferior and lateral leads. Pertinent details of the case were shared with the oncoming emergency physician who will help facilitate ultimate disposition based on an cardiology recommendations. Pain is better with morphine. Assisted with admission with Dr. Ariza. Patient is pain-free at this time after receiving sublingual and topical nitro. He still has persistent EKG changes inferior ST depression in 2 3 aVF V4 [address] depression is less impressive than when he first arrived this morning. He has been pain-free since his arrival. I discussed with the hospitalist and with cardiology patient to be admitted Dr. Jim asked that we keep him n.p.o. with the plan of taking to the [facility] later this morning. Troponins have been negative so far. CTA of the chest was negative for PE Lab Data I reviewed the patient's lab results. 10/06/24 03:39 10/06/24 03:39 Radiology Impressions Chest X-Ray 10/06/24 03:31 IMPRESSION: No acute findings. Chest CTA 10/06/24 04:01 IMPRESSION: 1. Faint ground-glass opacities throughout the bilateral lungs. This may be artifactual or may represent mild pulmonary edema. 2. No evidence of pulmonary artery emboli. Laboratory Results WBC 7.48 10^3/uL (3.29-11.43) 10/06/24 03:39 RBC 5.13 10^6/uL (3.85-5.65) 10/06/24 03:39 Hgb 14.40 g/dL (11.27-16.99) 10/06/24 03:39 Hct 44.4 % (37-53) 10/06/24 03:39 MCV 86.5 fl (82-101) 10/06/24 03:39 MCH 28.1 pg (27-33) 10/06/24 03:39 MCHC 32.4 g/dL (30-55) 10/06/24 03:39 RDW 12.3 % (12.1-15.1) 10/06/24 03:39 Plt Count 292 10^3/cmm (157-399) 10/06/24 03:39 MPV 9.2 fL (7.4-10.4) 10/06/24 03:39 Neut % (Auto) 49.5 % 10/06/24 03:39 Lymph % (Auto) 32.4 % 10/06/24 03:39 Baldwin % (Auto) 11.0 % 10/06/24 03:39 Eos % (Auto) 6.3 % 10/06/24 03:39 Baso % (Auto) 0.5 % 10/06/24 03:39 Neut # (Auto) 3.71 10^3/uL (1.8-7.7) 10/06/24 03:39 Lymph # (Auto) 2.4 10^3/uL (0.8-4.8) 10/06/24 03:39 Baldwin # (Auto) 0.8 10^3/uL (0.2-0.9) 10/06/24 03:39 Eos # (Auto) 0.5 10^3/uL (0.0-0.8) 10/06/24 03:39 Baso # (Auto) 0.0 10^3/uL (0.0-0.1) 10/06/24 03:39 Nucleated RBC % (auto) 0 % 10/06/24 03:39 Nucleated RBCs # 0.0 /100WBC 10/06/24 03:39 Sodium 138 mmol/L (136-145) 10/06/24 03:39 Potassium 3.9 mmol/L (3.5-5.1) 10/06/24 03:39 Chloride 103 mmol/L (98-107) 10/06/24 03:39 Carbon Dioxide 22 mmol/L (22-29) 10/06/24 03:39 Anion Gap 16.9 (5-19) 10/06/24 03:39 BUN 15 mg/dL (6-20) 10/06/24 03:39 Creatinine 0.8 mg/dL (0.7-1.2) 10/06/24 03:39 GFR Calculation 104.1 mL/min (90-130) 10/06/24 03:39 Glucose 143 mg/dL (65-115) H 10/06/24 03:39 Calculated Osmolality 289 mOsm/kg (285-295) 10/06/24 03:39 Calcium 9.5 mg/dL (8.5-10.5) 10/06/24 03:39 Total Bilirubin 0.4 mg/dL (0.15-1.2) 10/06/24 03:39 AST 21 U/L (0-40) 10/06/24 03:39 ALT 18 U/L (0-41) 10/06/24 03:39 Alkaline Phosphatase 155 U/L (40-130) H 10/06/24 03:39 Troponin T Baseline 7 ng/L (0-15) 10/06/24 03:39 Troponin T 120 Minute 7.83 ng/L (0-15) 10/06/24 05:40 Delta Troponin T 0.83 ABS# (0-10) 10/06/24 05:40 Total Protein 6.7 g/dL (6.6-8.7) 10/06/24 03:39 Albumin 4.1 g/dL (3.5-5.2) 10/06/24 03:39 Globulin 2.6 g/dL (1.3-4.6) 10/06/24 03:39 All radiology interpretation(s) finalized by discharge Discharge Plan Discharge Patient Disposition: Admitted As Inpatient Clinical Impression: Acute electrocardiogram changes, Chest pain Condition: Stable Coding Level of Care Code 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
--- NOTE | 2024-10-06 09:06 | XACV_ITS ---
Exam Room: 2 Ht: 180 cm Wt: 111 kg BSA: 2.40 m2 Gender: Male : 1980 Any Known Allergies: Other Exam Priority: Routine Procedure(s): Procedure Description: Diagnostic procedure Procedure Description: Left Heart Catheterization Procedure Description: Left ventriculography Procedure Description: Coronary Angiography KAITLYNLacy [facility]; Diagnostic Cath Status: Urgent Diagnostic Findings * No disease noted in the Left Main, Left Anterior Descending, Right, or Circumflex coronary arteries. * Coronary angiography shows right dominance. Conclusions 1. No disease noted in the Left Main, Left Anterior Descending, Right, or Circumflex coronary arteries. 2. All tai are normal. 3. Normal left ventricular systolic function. Ejection fraction of 65%. Recommendations * Continue current medical management and risk factor modification. Diagnostic RX Recommendation: medical therapy and/or counseling Ventriculography Ejection Fraction: 65.0 % Pressures Phase:Rest AO : 121 / 76 ( 94 ) @ 12:03:00 PM 105 / 86 ( 96 ) @ 12:05:00 PM 86 / 75 ( 81 ) @ 12:05:00 PM 122 / 72 ( 91 ) @ 12:10:00 PM 116 / 69 ( 86 ) @ 12:10:00 PM LV : 136 / 0 / 19 @ 12:09:00 PM 137 / -3 / 18 @ 12:10:00 PM 139 / -3 / 19 @ 12:10:00 PM Valves Phase:DefaultPhase AV : 16.0 @ 11:15:19 AM AV Mean Gradient: 17.0 @ 11:15:19 AM Clinical Evaluation EBL: 5mL-10mL Procedural Details Procedure Consent Obtained. Current Diagnosis : Unstable angina. Pre-Procedure Time Out. Identified patient by full name and date of as verbalized by the patient/guarantor. Does the consent match the physician's order: Yes. Accurate & Complete Informed Consent: Yes. Inpatient/Outpatient History & Physical on Chart: Yes. If H&P is completed, is and addenduem needed: No; If yes, is the addendum complete: N/A. Visualize and Verify Site with Patient/Guarantor: N/A. Relevant Radiology Images available: Yes. Pre-op teaching completed and patient verbalized understanding. The risks, benefits, and alternatives of sedation and/or procedure were discussed by physician. The patient agrees to continue. Procedure started. [facility] Clinical Fraility Score: 3: Managing Well. 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 Chest Pain Symptom Assessment: Typical Angina Symptoms. Correct patient, site and procedure confirmed by cath team. Current diagnosis: Unstable angina. PERRLA. 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 Lungs clear x 5 lobes. A 18 gauge IV was started in the right anticubital using aseptic technique. IV Fluids: 0.9% NaCl at KVO. 0 mL infused prior to systems testing laboratory technician. Oxygen started at 2liters/min via nasal canula. right groin was prepped with chloroprep then draped in the usual sterile fashion. right radial was prepped with chloroprep then draped in the usual sterile fashion. Baseline sample Acquired. HR: 88 BPM. Physician arrived. Physician scrubbed in. Immediate Pre-Procedure Time Out. Correct Patient: Yes; Correct Procedure: Yes; Correct Site: Yes; Correct Patient Position: Yes; Correct Supplies: Yes; Dried Flammable Prep: Yes; Blood Products Available: N/A;. Lidocaine 1% infiltrated to the right radial. Arterial access obtained. A 5 yi TIG catheter in over wire. Multiple views taken of left coronary artery. Catheter redirected to the RCA. Multiple views taken of right coronary artery. Catheter removed over the exchange wire. A 5 yi Angled Pig catheter in over wire. EDP Sample taken: LV 136/-1,19; HR: 89 BPM; SpO2: 97%. LV gram performed in VILLAR @ 10 mL/second for a total of 30 mL. EDP Sample taken: LV 137/-4,18; HR: 89 BPM; SpO2: 98%. Pullback taken: LV 139/-4,19; AO 122/72(91); Mean: 17mmHg, Peak to Peak: 16mmHg, SEP: 8sec/min; HR: 89 BPM; SpO2: 98%. Catheter removed over the exchange wire. A TR Band was successful obtaining hemostatsis at the Right Radial artery insertion site. Post Procedure: Pulses reassessed and unchanged. PERRLA. 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 No VTE prophylaxis required. Medication's Wasted: Lidocaine 1% = 18 mL. Medication's Wasted: Nitro = 49.8 mcg. Medication's Wasted: Heparin = 1000 units. Total IV fluids: 25 mL. Post-op diagnosis: Normal Coronaries. Complications: None. Estimated blood loss: 5mL-10mL. Responsiveness - Normal response to verbal stimuli; alert and oriented, PERRLA. Airway - Unaffected, no intervention required; spontaneous ventilation. Circulation: W/N/L, pulses unchanged. Nausea/Vomiting: No. Procedure completed. Patient transferred by wheelchair to CPRU. Vital chart was stopped. Access Site Site: Right Radial artery Sheath Size: 6 Fr Hemostasis Method: TR Band Hemostasis Success: Successful Procedure Medications Start: 10:51 AM Stop: 10:51 AM Medication: Versed Amount: 1 mg Route: I.V. Start: 10:51 AM Stop: 10:51 AM Medication: Fentanyl Amount: 50 mcg Route: I.V. Start: 10:57 AM Stop: 10:57 AM Medication: Fentanyl Amount: 25 mcg Route: I.V. Start: 11:01 AM Stop: 11:01 AM Medication: Nitrogylcerin Amount: 200 mcg Route: I.A. Start: 11:02 AM Stop: 11:02 AM Medication: Heparin Amount: 5000 units Route: I.V. Start: 11:05 AM Stop: 11:05 AM Medication: Versed 1 mg and Fentanyl 25 mcg Amount: 1 Route: I.V. I, the attending physician, have reviewed and verified all procedure medications. Yes, all medications given per verbal order History/Risk Factors Hypertension: No Dyslipidemia: No Peripheral Arterial Disease (PAD): No Myocardial Infarction (MT): No Obesity: Yes Renal Disease: No Tobacco Use: Former Prior Interventions PCI: No CABG: No Valve Surgery: No Report Signatures Finalized by Parker House MD on 10/11/2024 10:54 PM
[2024-10-06] MEDS: aspirin 325 mg Tablet PO (09:34)
[2024-10-06] MEDS: sodium chloride 0.9% 1,000 ML 50 ML IV (09:35)
[2024-10-06 09:38] LABS: NT Pro B Type Natriuretic Pept < 36 pg/mL (0-125)
--- NOTE | 2024-10-06 09:40 | P.HP_ITS ---
Providers/Chief Complaint 2 Primary Care Provider: Niraj Ace Chief Complaint: cp,stress History of Present Illness Blade Kasper is a 44 year old male with a history of type 2 diabetes mellitus, obstructive sleep apnea, gastroesophageal reflux disease, obsessive- compulsive disorder, generalized anxiety disorder, major depressive disorder, binge eating disorder, benign familial tremor, and former smoking, presenting with chest pressure that began around noon the previous day. The chest pressure was described as coming and going, sometimes waking the patient from sleep, and felt like a constricting band. The patient denied recent fever, chills, cough, nausea, vomiting, diarrhea, rashes, blood in stool, or blood in urine. The patient reported ongoing heartburn that can occur at any time, sometimes relieved by changing position. The patient denied shortness of breath with exertion. The patient quit smoking five months ago but occasionally chews tobacco. No alcohol or recreational drug use was reported. The patient has been eating and drinking normally. There is no report of choking or coughing with eating or drinking. The patient currently feels fine, with the chest discomfort mostly resolved at the time of the encounter. Review of Systems 2 Const: Denies: fever(s), chills, body aches or malaise ENMT: Denies: throat pain Card: Reports: chest pain (Pressure) and lightheadedness (With standing up); Denies: edema, pre-syncope or dyspnea on exertion Resp: Denies: dyspnea, productive cough, change in phlegm color or hemoptysis GI: Reports: heartburn; Denies: abdominal pain, nausea, vomiting, diarrhea, constipation, hematochezia or melena : Denies: flank pain, difficulty urinating, urinary frequency or hematuria Musc: Denies: back pain, joint swelling or joint redness Skin/Breast: Denies: rash or new lesions Neuro: Denies: headache(s) or confusion Medications/Allergies Home Medications ?Medication ?Instructions ?Recorded ?Confirmed ?Last Taken ?Type No Known Home Medications 10/06/2408/27 Unknown History Allergies Allergy/AdvReac Type Severity Reaction Status Date / Time grass pollen Allergy Unknown Unknown Verified 07/12/24 14:18 sulfamethoxazole (From Allergy Unknown Unknown Verified 07/12/24 14:18 Bactrim) trimethoprim (From Bactrim) Allergy Unknown Unknown Verified 07/12/24 14:18 PFSH Acute 2 PFSH: Medical History Palpitations Benign familial tremor Diet-controlled type 2 diabetes mellitus GERD (gastroesophageal reflux disease) Seasonal allergies 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 Obstructive sleep apnea uses CPAP machine Cigarette smoker 30 pack year history Obsessive-compulsive disorder, unspecified Generalized anxiety disorder Major depressive disorder, recurrent, in full remission Panic disorder [episodic paroxysmal anxiety] Surgical History History of tooth extraction all teeth extracted 2023 Hx of sinus surgery deviated septum Hx of cholecystectomy Family History Father CAD (coronary artery disease) Colon cancer Family/Other CAD (coronary artery disease) Mother Hypertension Social History Smoking and tobacco/nicotine status: former use of tobacco/nicotine Second hand smoke exposure: No Alcohol intake: never Substance/Drug Use: never Household members: spouse Marital status: Vitals/I&O/Wt Last Vital Signs Temp 98.2 F 10/06/24 03:29 Pulse 79 10/06/24 09:12 Resp 16 10/06/24 06:00 BP 135/79 10/06/24 09:12 Pulse Ox 98 10/06/24 09:12 O2 Del Method Room Air 10/06/24 09:12 Weight last 48 hrs Weight 111.13 kg Physical Exam 2 Narrative: Accompanied by family member Const: COMMON NORMALS: patient oriented x3 and alert GENERAL APPEARANCE: c ooperative NUTRITIONAL APPEARANCE: obese ORIENTATION/CONSCIOUSNESS: Yes awake HENMT: COMMON NORMALS: oropharynx normal Neck/C-Spine: COMMON NORMALS: no JVD Resp: COMMON NORMALS: normal respiratory effort and clear to auscultation bilaterally AUSCULTATION: clear to auscultation bilaterally Cardio: COMMON NORMALS: no JVD, regular rhythm, S1 normal heart sound present, S2 normal heart sound present and No murmurs present (Cardio) RHYTHM: regular rhythm HEART SOUNDS: S1 normal heart sound present and S2 normal heart sound present GI: COMMON NORMALS: Normal to inspection, nondistended, normoactive bowel sounds present, Soft to palpation and non-tender PALPATION: Yes Soft to palpation Extremity: COMMON NORMALS: no joint enlargement and no pedal edema Neuro: COMMON NORMALS: patient oriented x3 and moves all extremities S ENSORIUM/ORIENTATION: Yes alert Skin: COMMON NORMALS: no rashes or lesions noted GENERAL SKIN EXAM: no rashes or lesions noted Data 10/06/24 03:39 10/06/24 03:39 A&P Assessment and plan (1) Tightness in chest: Possible unstable angina with persistent/recurrent new chest pressure, centrally, and gentleman with risk factors for coronary disease with EKG abnormality with ST depression and T wave inversions laterally on my interpretation, pending official read. The patient presented with intermittent chest pressure starting around noon the previous day, described as a constricting band, sometimes waking the patient from sleep. Troponin levels at baseline and at 2 hours were not elevated. Chest X-ray showed no acute findings. CT angiogram of the chest showed no evidence of pulmonary embolism but did reveal faint ground glass opacities throughout bilateral lungs, possibly mild pulmonary edema. EKG changes were concerning for possible blockage. The provider expressed high suspicion for coronary artery disease and discussed the need to rule out heart failure. Differential diagnoses considered included acute coronary syndrome, coronary artery spasm, pericardial inflammation, and pulmonary causes such as atypical pneumonia or aspiration-related inflammation. Reviewed vitals, CBC, CMP, troponin, EKG, chest x-ray, CT angiogram chest, ED provider note, discussed with the provider, discussed with cardiology team. - Proceed with coronary angiogram to evaluate for coronary artery blockage. NPO. - If blockage is found, plan for stent placement and initiation of DAPT. -Will be anticoagulated during the procedure as per discussion with cardiology. Monitor for risk of bleeding. Received aspirin 325 mg. Continue aspirin. Will need to continue DAPT in case of intervention discussed with patient. - Add statin, beta-kait. - Monitor for changes in symptoms and instructed to notify staff if pain returns or worsens. Monitor on telemetry with risk of arrhythmia. -Receiving IV fluid hydration, monitor for risk of fluid overload. - With GERD, start PPI, discussed strategies with him to avoid reflux (2) Orthostasis: Reports feeling lightheaded over the last several weeks when standing up. Denies vertigo. Feels like he might blackout. Denies any medications, does not take any medications. Denies nausea or vomiting, appetite has been good. Although may have gotten dehydrated working on the floors. Obtain orthostatic blood pressures once able. Assess TTE. (3) Heartburn: Uncontrolled GERD. Discussed with him starting PPI, follow-up with prime provider for additional assessment and arrangements for endoscopy with GERD, history of smoking to rule out secondary causes of dyspepsia including malignancy. Discussed with him strategies to reduce reflux at night including avoiding food for 3-4 hours prior to sleep, elevating head of bed. (4) Ground glass opacity present on imaging of lung: Bilateral groundglass opacities. Possible pulm edema. Assess TTE. Assess unstable angina as above. He does report reflux disease as well, possible pneumonitis. Start PPI. Discussed with him strategies to reduce reflux. Possible atypical pneumonia. Will check viral panel. Plan Former smoker Diet controlled DM2: Reviewed A1c. beginning of September was 6.5, at target. VENITA: Continue CPAP Generalized anxiety disorder and panic disorder MDD OCD PDMP PDMP Reviewed: Not Reviewed Attestations 2 Medical Necessity Statement*: Place in observation for additional assessment and management of unstable angina, orthostasis enrollment with cardiovascular risk factors. Diagnoses Tightness in chest R07.89 Orthostasis I95.1 Heartburn R12 Ground glass opacity present on imaging of lung R91.8
[2024-10-06 09:48] LABS: Troponin 5 6HR 6.46 ng/L (0-15)
[2024-10-06 09:53] LABS: Troponin 5 6HR Delta -0.54 ng/L (0-12)
--- NOTE | 2024-10-06 10:03 | USCV_ITS ---
Blade Kasper Age: 44 Gender: M : 1980 Exam Date: 10/06/2024 14:48 Ordering Phys: Gabriel Rodríguez MD Technologist: RACQUEL Exam Location: [facility] [place] Indication: CP BP: 132 / 80 HR: 87 Rhythm: Sinus Technical Quality: Adequate MEASUREMENTS (Male / Female) Normal Values 2D ECHO LV Diastolic Diameter PLAX 5.5 cm 4.2 - 5.9 / 3.9 - 5.3 cm IVS Diastolic Thickness 0.6 cm 0.6 - 1.0 / 0.6 - 0.9 cm IVS Systolic Thickness 1.5 cm LVPW Diastolic Thickness 1.0 cm 0.6 - 1.0 / 0.6 - 0.9 cm LVPW Systolic Thickness 1.3 cm LVOT Diameter 2.0 cm LV Ejection Fraction 2D Teich 51.8 % LV Ejection Fraction MOD 4C 63.9 % LV Ejection Fraction MOD 2C 55.0 % LV Ejection Fraction 2C AL 59.6 % LA Diameter 2.9 cm RA Systolic Volume 4C AL 38.5 ml RA Systolic Volume 4C MOD 36.2 ml LA Sys Volume AL 32.4 cm cubed LA Sys Volume Index AL 13.5 cm cubed/m squared Aorta at Sinotubular Diameter 2.5 cm IVC Diameter 1.9 cm M-MODE LA Ao Ratio MM 1.6 AV Cusp Separation MM 1.5 cm DOPPLER AV Peak Velocity 136.0 cm/s LVOT Peak Velocity 93.0 cm/s AV Area Cont Eq vti 1.8 cm squared AV Area Cont Eq pk 2.0 cm squared MV Peak Velocity 104.0 cm/s MV Area PHT 6.9 cm squared Mitral E to A Ratio 0.6 TR Peak Velocity 133.0 cm/s TR Peak Gradient 7.1 mmHg TV Peak E Velocity 91.0 cm/s PV Peak Velocity 127.0 cm/s FINDINGS Left Ventricle Normal left ventricular size, systolic function and wall thickness, with no regional wall motion abnormalities. Left ventricular ejection fraction is estimated at 60 %. Grade I/IV diastolic dysfunction (abnormal relaxation filling pattern), normal to mildly elevated filling pressures. Right Ventricle The right ventricle is normal in size and function. Right Atrium The right atrium is normal in size. Left Atrium The left atrium is normal in size. Mitral Valve Structurally normal mitral valve without significant stenosis or prolapse. There is no mitral regurgitation. Aortic Valve Mild aortic valve calcification. No aortic valve stenosis. Trace aortic valve regurgitation. Tricuspid Valve Structurally normal tricuspid valve without significant stenosis or regurgitation. Pulmonary artery systolic pressure is normal. Pulmonic Valve Structurally normal pulmonic valve without significant stenosis. There is no pulmonic regurgitation. Pericardium Normal pericardium without effusion. Aorta Normal ascending aorta dimension. IVC The inferior vena cava appears normal. CONCLUSIONS Normal left ventricular size, systolic function and wall thickness, with no regional wall motion abnormalities. Left ventricular ejection fraction is estimated at 60 %. Grade I/IV diastolic dysfunction (abnormal relaxation filling pattern), normal to mildly elevated filling pressures. There is no pericardial effusion. No significant valve abnormalities. Right atrial pressure is around 5 mm of mercury. Parker House MD (Electronically Signed) Final Date: 06 October 2024 17:11 S
[2024-10-06] MEDS: diphenhydrAMINE 50 mg Capsule PO (10:26)
--- NOTE | 2024-10-06 10:49 | W.PM.OPSUD ---
Surgery/Procedure H&P Update DATE OF PROCEDURE: October 06, 2024 DATE H&P PERFORMED: 10/06/24 H&P UPDATE INFORMATION: I have reviewed H&P completed within last 30 days, I have examined patient prior to procedure and No changes to prior documentation PREOP DIAGNOSIS: Unstable angina PATIENT REASSESSED PRIOR TO SEDATION, WITH NO CHANGE NOTED: Yes PHYSICAL EXAM: alert, oriented x 3, clear to auscultation bilaterally, regular rate & rhythm and operative site marked AIRWAY EVAL/ANESTHESIA PLAN: ASA II, Risks, benefits & alternatives of sedation and/or procedure discussed and Patient agrees to continue as planned ADDITIONAL INFORMATION: Patient has been explained all risk-benefit and alternative for the procedure. He understand risk for stroke which is 2%, he understand risk for major bleed which is 2%, he understand 5 to 6% risk of contrast-induced nephropathy urgent emergent vascular bypass surgery, patient understood and would like to proceed with it
--- NOTE | 2024-10-06 11:15 | PC.NURSE ---
Received the patient back from the excavation laborer via wheelchair s/p Diagnostic [facility]. Patient ambulated to the cot without difficulty. A & 0 x 3. split and drum room supervisor placed and vital signs obtained. TR band intact to the right wrist. No bleeding or hematoma noted. Palpable radial pulse. No other assessment changes noted from pre cath assessment. Family at bedside. No concerns voiced at this time. Plan to transfer to floor when bed available.
--- NOTE | 2024-10-06 11:37 | PM.PROC ---
Procedure Note: Date of procedure: 10/06/24 Pre-procedure diagnosis: Unstable angina Post-procedure diagnosis: other Procedure: Left heart cath was performed Left main: Normal LAD: Normal LCx: Normal RCA: Normal Left ventricle ejection fraction: Normal 60% Plan: Extracardiac cause for chest pain such as esophagitis GERD need to be considered Good blood pressure control Tobacco cessation advised Full note to be dictated Coding Level of Care Code Acute Code for [place]
--- NOTE | 2024-10-06 12:15 | PC.NURSE ---
Letting the air out of the TR band per protocol. No other changes noted at this time.
[2024-10-06] MEDS: metoprolol tartrate 25 mg Tablet PO (14:27)
--- NOTE | 2024-10-06 14:27 | P.CONIM_ITS ---
<Statement entered by Parker House MD - 10/06/24 21:22> Patient was evaluated and cared for in conjunction with an advanced practice practitioner. I personally examined the patient and reviewed the chart and all pertinent data including imaging, telemetry, and laboratory results. I discussed the patient in detail with the advanced practice practitioner. Please see their note for complete H&P testing result and agreed upon plan of care for the patient. 44-year-old male with continues tobacco abuse recurrent chest pain and inferolateral abnormal T wave GENERAL: Patient is alert, awake and oriented x3. HEART: Regular S1 and S2. No murmur, rub or gallop. LUNGS: Clear to auscultate bilaterally. CENTRAL NERVOUS SYSTEM: Grossly nonfocal. EXTREMITIES: Lower extremities with out edema bilaterally. Assessment and plan Chest pain suspicious for unstable angina given patient risk factor including hypertension hyperlipidemia family history of coronary artery disease continues tobacco abuse and EKG changes which are new Proceed with left heart cath Further plan will be devised as per progress the patient Providers/Reason For Consult 2 Consulting Physician/Specialty*: Parker House MD Reason for Consult*: chest pain Requesting Physician: Dr. Ham Attending Physician: Shazia Savage MD Primary Care Provider: Niraj Ace History of Present Illness History of Present Illness Blade Kasper is a 44 year old male with family history of heart disease, current cigarette smoker, obstructive sleep apnea, type 2 diabetes came into the ER today with history of chest pain. He states yesterday it came on while he was fishing. He describes it as pressure-like across his whole chest. Denied any aggravating or relieving factors. He denies any cardiac history. He recently quit smoking a few months ago. He denies any shortness of breath at this time. EKG in the ED showed T wave inversion in the inferior lateral leads. This was a change from his previous EKG. Patient also has a history of palpitations. He has a previous heart monitor showing no significant arrhythmias. Chest CTA was done that showed faint groundglass opacities throughout bilateral lungs. No evidence of PE was found. Troponins were normal. Review of Systems 2 Narrative: Consitutional: denies fever, chills, body aches, or changes in appetite, denies abnormal weight loss Eyes: Denies changes in vision Card: Denies chest pain, palpitations, irregular heart rhythm, edema, syncope, shortness of breath, orthopnea, leg pain with exertion Resp: Denies shortness of breath, denies hemoptysis, denies cough GI: denies abdominal pain, denies nausea or voimting, denies blood in stool : denies blood in urine, denies dysuria Musc: Denies extremity pain, denies limited range of motion or recent injury Skin: Denies rash, lesions, or wounds, denies changes to skin color Neuro: Denies nubmness in extremities, h/a, s/s of stroke Don: Denies easy bruiding/bleeding Medications/Allergies Home Medications ?Medication ?Instructions ?Recorded ?Confirmed ?Last Taken ?Type No Known Home Medications 10/06/2408/27 Unknown History Allergies Allergy/AdvReac Type Severity Reaction Status Date / Time grass pollen Allergy Unknown Unknown Verified 07/12/24 14:18 sulfamethoxazole (From Allergy Unknown Unknown Verified 07/12/24 14:18 Bactrim) trimethoprim (From Bactrim) Allergy Unknown Unknown Verified 07/12/24 14:18 Current Medications Generic Name Dose Route Start Last Admin Trade Name Freq PRN Reason Stop Dose Admin Sodium Chloride 1,000 mls @ 50 mls/hr 10/06/24 09:06 10/06/24 09:35 Sodium Chloride 0.9% IV 10/07/24 05:05 50 mls/hr .Q20H ONE Administration PFSH Acute 2 PFSH: Medical History Palpitations Benign familial tremor Diet-controlled type 2 diabetes mellitus GERD (gastroesophageal reflux disease) Seasonal allergies 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 Obstructive sleep apnea uses CPAP machine Cigarette smoker 30 pack year history Obsessive-compulsive disorder, unspecified Generalized anxiety disorder Major depressive disorder, recurrent, in full remission Panic disorder [episodic paroxysmal anxiety] Surgical History History of tooth extraction all teeth extracted 2023 Hx of sinus surgery deviated septum Hx of cholecystectomy Family History Father CAD (coronary artery disease) Colon cancer Family/Other CAD (coronary artery disease) Mother Hypertension Social History Smoking and tobacco/nicotine status: former use of tobacco/nicotine Second hand smoke exposure: No Alcohol intake: never Substance/Drug Use: never Household members: spouse Marital status: Vitals/I&O/Wt Last Vital Signs Temp 98.2 F 10/06/24 03:29 Pulse 85 10/06/24 13:45 Resp 18 10/06/24 13:51 BP 138/71 10/06/24 13:45 Pulse Ox 98 10/06/24 13:51 O2 Del Method Room Air 10/06/24 13:51 Weight last 48 hrs Weight 245 lb Weight 245 lb Physical Exam 2 Narrative: General: No apparent distress, healthy appearing, well nourished HENMT: normoceophalic Muskuloskeletal: Full ROM Lymphatic: no lymphedema noted Respiratory: Normal respiratory effort, clear to auscultation bilaterally throughout all lung jim, no use of accessory muscles Cardio: No JVD, regular rate, regular rhythm, S1 S2 normal, no murmurs, peripheral pulses 2+ radial palpated bilaterally Extremities: Full ROM, normal, normal capillary refill, no cyanosis or edema Neuro: Alert and oriented x4, no focal motor deficits Psych: Affect normal, denies suicidal ideation, mental status grossly normal Skin: No rashes or lesions noted, no wounds Data 10/06/24 03:39 10/06/24 03:39 A&P Assessment and plan (1) Tightness in chest: (2) Heartburn: (3) Ground glass opacity present on imaging of lung: Plan Due to patient having unstable angina with EKG changes that were acute in the inferior lateral leads, patient was taken to the [facility] to have an angiogram possible PCI. During that EF was found to be 60% with normal coronary arteries. Extracardiac cause for chest pain such as esophagitis or GERD may need to be considered. We recommend good blood pressure control continuation of tobacco cessation. PDMP PDMP Reviewed: Not Reviewed Consult Attestations 2 Medical Necessity Statement: Deferred to primary Coding Level of Care Code Acute Code for Chg Fwd Diagnoses Tightness in chest R07.89 Heartburn R12 Ground glass opacity present on imaging of lung R91.8
[2024-10-06] MEDS: pantoprazole 40 mg SDV IVP (14:28)
[2024-10-06] MEDS: sodium chloride 0.45% 1,000 ML 100 ML IV (14:28)
[2024-10-06 14:46] LABS: Magnesium 1.9 mg/dL (1.7-2.3)
--- NOTE | 2024-10-06 17:21 | PM.DCS ---
Discharge Providers Date of Admission: 10/06/24 14:16 Date of Discharge: October 06, 2024 Attending Provider at Admission: Shazia Savage MD Attending Provider at Discharge: Gabriel Rodríguez Primary Care Provider: Niraj Ace Diagnoses at Discharge Discharge Diagnosis (1) Tightness in chest: Status: Acute (2) Heartburn: Status: Acute (3) Ground glass opacity present on imaging of lung: Status: Acute Reason for Visit Reason for Visit: cp,stress Brief History: Blade Kasper is a 44 year old male with a history of type 2 diabetes mellitus, obstructive sleep apnea, gastroesophageal reflux disease, obsessive-compulsive disorder, generalized anxiety disorder, major depressive disorder, binge eating disorder, benign familial tremor, and former smoking, presenting with chest pressure that began around noon the previous day. The chest pressure was described as coming and going, sometimes waking the patient from sleep, and felt like a constricting band. The patient denied recent fever, chills, cough, nausea, vomiting, diarrhea, rashes, blood in stool, or blood in urine. The patient reported ongoing heartburn that can occur at any time, sometimes relieved by changing position. The patient denied shortness of breath with exertion. The patient quit smoking five months ago but occasionally chews tobacco. No alcohol or recreational drug use was reported. The patient has been eating and drinking normally. There is no report of choking or coughing with eating or drinking. The patient currently feels fine, with the chest discomfort mostly resolved at the time of the encounter. Hospital Course Hospital Course He was hospitalized and further assessed by cardiology, monitor on telemetry, with monitoring of vitals. Noted few episodes of hypotension, started on metoprolol, received a dose of aspirin. Started on atorvastatin. Echocardiogram was obtained. Troponin series remained negative. Orthostatics obtained and were negative. He was further assessed by coronary angiography due to concern of the underlying risk factors as well as lateral lead ST depression and T wave inversions. Coronary angiogram returned normal. Echocardiogram with normal ejection fraction, grade 1 diastolic dysfunction. He is continuing on metoprolol to help with management of his blood pressures as he felt he had good response to in the hospital. He is continuing on atorvastatin due to underlying cardiovascular risks. CT angiogram chest revealed no PE, but did show bilateral groundglass opacity, possibly pneumonitis versus some pulm edema. His NT proBNP was less than 36, otherwise without signs of fluid overload, with TTE as above. Respiratory viral panel was obtained. Otherwise suspect possible pneumonitis secondary to reflux disease as below. Please reassess for resolution clinically and with repeat imaging. He does note having quite symptomatic reflux disease and is started on PPI and asked to follow-up with primary provider for additional assessment and arrangements for endoscopic evaluation. We discussed strategies of reducing reflux including avoiding food and/or drink for 3 to 4 hours prior to going to bed, avoiding foods that contribute to reflux including coffee, chocolate, mint, spicy foods, alcohol, as well as elevating head of bed. Physical Exam Narrative: On reassessment after coronary angiogram he is sitting upright, comfortable. No recurrence of pain. No issues at access site. Const: COMMON NORMALS: patient oriented x3 and alert GENERAL APPEARANCE: cooperative ORIENTATION/CONSCIOUSNESS: Yes awake Resp: COMMON NORMALS: normal respiratory effort Cardio: COMMON NORMALS: regular rate JUGULAR VENOUS DISTENTION: no JVD RATE: regular rate GI: COMMON NORMALS: Normal to inspection, nondistended, normoactive bowel sounds present, Soft to palpation and non-tender PALPATION: Yes Soft to palpation Extremity: COMMON NORMALS: no joint enlargement and no pedal edema Neuro: COMMON NORMALS: patient oriented x3 and moves all extremities SENSORIUM/ORIENTATION: Yes alert Skin: COMMON NORMALS: no rashes or lesions noted GENERAL SKIN EXAM: no rashes or lesions noted Discharge Data Studies Completed and Pending Completed Studies During Hospitalization Category Date Time Status CTA chest [CT angio chest PE protcl [id number]] Stat Cat Scan 10/06/24 04:01 Completed XR chest 1V portable [id number] Stat Exams 10/06/24 03:31 Completed CV. 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 Chest CTA 10/06/24 04:01 IMPRESSION: 1. Faint ground-glass opacities throughout the bilateral lungs. This may be artifactual or may represent mild pulmonary edema. 2. No evidence of pulmonary artery emboli. Laboratory Results WBC 7.48 10^3/uL (3.29-11.43) 10/06/24 03:39 RBC 5.13 10^6/uL (3.85-5.65) 10/06/24 03:39 Hgb 14.40 g/dL (11.27-16.99) 10/06/24 03:39 Hct 44.4 % (37-53) 10/06/24 03:39 MCV 86.5 fl (82-101) 10/06/24 03:39 MCH 28.1 pg (27-33) 10/06/24 03:39 MCHC 32.4 g/dL (30-55) 10/06/24 03:39 RDW 12.3 % (12.1-15.1) 10/06/24 03:39 Plt Count 292 10^3/cmm (157-399) 10/06/24 03:39 MPV 9.2 fL (7.4-10.4) 10/06/24 03:39 Neut % (Auto) 49.5 % 10/06/24 03:39 Lymph % (Auto) 32.4 % 10/06/24 03:39 [place] % (Auto) 11.0 % 10/06/24 03:39 Eos % (Auto) 6.3 % 10/06/24 03:39 Baso % (Auto) 0.5 % 10/06/24 03:39 Neut # (Auto) 3.71 10^3/uL (1.8-7.7) 10/06/24 03:39 Lymph # (Auto) 2.4 10^3/uL (0.8-4.8) 10/06/24 03:39 [place] # (Auto) 0.8 10^3/uL (0.2-0.9) 10/06/24 03:39 Eos # (Auto) 0.5 10^3/uL (0.0-0.8) 10/06/24 03:39 Baso # (Auto) 0.0 10^3/uL (0.0-0.1) 10/06/24 03:39 Nucleated RBC % (auto) 0 % 10/06/24 03:39 Nucleated RBCs # 0.0 /100WBC 10/06/24 03:39 Sodium 138 mmol/L (136-145) 10/06/24 03:39 Potassium 3.9 mmol/L (3.5-5.1) 10/06/24 03:39 Chloride 103 mmol/L (98-107) 10/06/24 03:39 Carbon Dioxide 22 mmol/L (22-29) 10/06/24 03:39 Anion Gap 16.9 (5-19) 10/06/24 03:39 BUN 15 mg/dL (6-20) 10/06/24 03:39 Creatinine 0.8 mg/dL (0.7-1.2) 10/06/24 03:39 GFR Calculation 104.1 mL/min (90-130) 10/06/24 03:39 Glucose 143 mg/dL (65-115) H 10/06/24 03:39 Calculated Osmolality 289 mOsm/kg (285-295) 10/06/24 03:39 Calcium 9.5 mg/dL (8.5-10.5) 10/06/24 03:39 Magnesium 1.9 mg/dL (1.7-2.3) 10/06/24 09:23 Total Bilirubin 0.4 mg/dL (0.15-1.2) 10/06/24 03:39 AST 21 U/L (0-40) 10/06/24 03:39 ALT 18 U/L (0-41) 10/06/24 03:39 Alkaline Phosphatase 155 U/L (40-130) H 10/06/24 03:39 Troponin T Baseline 7 ng/L (0-15) 10/06/24 03:39 Troponin T 120 Minute 7.83 ng/L (0-15) 10/06/24 05:40 Delta Troponin T 0.83 ABS# (0-10) 10/06/24 05:40 Troponin T Hi Sens 6Hr 6.46 ng/L (0-15) 10/06/24 09:23 Troponin T Hi Sens 6Hr Delta -0.54 ng/L (0-12) L 10/06/24 09:23 NT-Pro-B Natriuret Pep < 36 pg/mL (0-125) 10/06/24 03:39 Total Protein 6.7 g/dL (6.6-8.7) 10/06/24 03:39 Albumin 4.1 g/dL (3.5-5.2) 10/06/24 03:39 Globulin 2.6 g/dL (1.3-4.6) 10/06/24 03:39 Vitals Last Vital Signs Temp 98.4 F 10/06/24 14:45 Pulse 79 10/06/24 16:45 Resp 12 10/06/24 16:45 BP 123/76 10/06/24 16:45 Pulse Ox 98 10/06/24 16:30 O2 Del Method Room Air 10/06/24 13:51 Discharge Plan Discharge Patient Disposition: Home Condition: Stable Prescriptions: New atorvastatin 40 mg Tablet 40 mg PO BEDTIME Qty: 90 0RF metoprolol tartrate 25 mg Tablet 25 mg PO BID@0900,2100 Qty: 90 0RF pantoprazole [Protonix] 40 mg tablet,delayed release (DR/EC) 40 mg PO DAILY 42 Days Qty: 42 0RF No Action No Known Home Medications Discharge Orders: Discharge Order (Routine); Ordered 10/06/24 Ordered By: Gabriel Rodríguez Referrals: Niraj Ace NP [Primary Care Provider, Family Practice] - 4-7 days Referral Note: We have notified your physician's clinic of the need for a follow-up appointment to be scheduled. If you have not heard from them within the next 2 business days, please call them directly. please call office for a follow up appointment ,juan carlos if you do not hear from this clinic ,primary care physicans like to follow 4-7 days after follow up from hospital visit Patient Instructions: Metoprolol (By mouth), Atorvastatin (By mouth) (Lipitor, Atorvaliq), Pantoprazole (By mouth) (Protonix), GERD (Gastroesophageal Reflux Disease) (DC), Chest Pain Stoplight, Post Angiogram Home Care Instructions Activity Restrictions/Additional Instructions: As discussed, please continue to work on reducing factors that may contribute to reflux. If possible avoid eating for 3 to 4 hours before bed. As discussed, avoid foods that may open the upper stomach valve which include spicy foods, coffee, chocolate, mint, alcohol. Elevate head of bed if possible to 30 degrees, perhaps with cinderblocks under the bed legs. You are started on acid blocking medication. Follow-up with your primary doctor for additional assessment and arrangements for endoscopic evaluation. Due to risk factors for developing cardiovascular disease you are started on cholesterol medication to help reduce these risks. Continue diabetes management and follow-up with primary provider for reassessment. Monitor your blood pressures, due to some elevated blood pressure values you are started on metoprolol to help control the blood pressure. It helps slow down the heart rate as well, so please monitor your blood pressure and heart rate 2-3 times daily. Follow-up with your primary doctor for reassessment of groundglass opacities noted in the lungs, possible inflammation perhaps due to reflux disease. Have your primary doctor follow-up for resolution, and if not resolving consider additional causes and possibly referral to a lung specialist. As discussed also, avoid lifting more than 3 pounds for 2 days after arterial access in the right wrist. As discussed medical attention in case of development of pulsatile mass, pale color of the hand, loss of sensation or strength or any other new or recurrent concerning symptoms of chest pressure or other. Discharge Attestations Time Spent in Discharge Care*: greater than 30 min Quality Metrics Clinical Quality Measures [ No reported AMI, CVA or VTE this stay] Coding Level of Care Code 92583 Total time (in minutes) for Discharge: 40 Diagnoses Tightness in chest R07.89 Heartburn R12 Ground glass opacity present on imaging of lung R91.8
[2024-10-06 19:27] LABS: Adenovirus Not Detected (NOT DETECT); Chlamydia Pneumoniae Not Detected (NOT DETECT); Coronavirus 229E,HKU1,NL63,OC4 Not Detected (NOT DETECT); Human Metapneumovirus Not Detected (NOT DETECT); Human Rhinovirus/Enterovirus Not Detected (NOT DETECT); Influenza A Not Detected (NOT DETECT); Influenza A H1 Not Detected (NOT DETECT); Influenza A H1-2009 Not Detected (NOT DETECT); Influenza A H3 Not Detected (NOT DETECT); Influenza B Not Detected (NOT DETECT); Mycoplasma Pneumoniae Not Detected (NOT DETECT); Parainfluenza Virus Type 1 Not Detected (NOT DETECT); Parainfluenza Virus Type 2 Not Detected (NOT DETECT); Parainfluenza Virus Type 3 Not Detected (NOT DETECT); Parainfluenza Virus Type 4 Not Detected (NOT DETECT); Respiratory Syncytial Virus A Not Detected (NOT DETECT); Respiratory Syncytial Virus B Not Detected (NOT DETECT); SARS-COV-2 Not Detected (NOT DETECT)
== END 2024-10-06 17:55 | disposition home or self-care (01) ==
LOC: ER 06:42 → CCL 10:38 → ICU 13:33 → CCL 14:17 → ICU 17:00
PROVIDERS: Internal Medicine Cardiovascular Disease; Student in an Organized Health Care Education/Training Program; Admitting Provider Internal Medicine; Emergency Provider Family Medicine; PCP Clinical Nurse Specialist Adult Health; Visit Provider Internal Medicine
DX: R07.89 Other chest pain (principal); G47.33 Obstructive sleep apnea (adult) (pediatric); K21.9 Gastro-esophageal reflux disease without esophagitis; R00.0 Tachycardia, unspecified; E11.9 Type 2 diabetes mellitus without complications; F42.9 Obsessive-compulsive disorder, unspecified; F41.1 Generalized anxiety disorder; F32.9 Major depressive disorder, single episode, unspecified; F41.0 Panic disorder [episodic paroxysmal anxiety]; I95.1 Orthostatic hypotension; R91.8 Other nonspecific abnormal finding of lung field; Z82.49 Family history of ischemic heart disease and other diseases of the circulatory system; F50.819 Binge eating disorder, unspecified; Z68.34 Body mass index [BMI] 34.0-34.9, adult; Z87.891 Personal history of nicotine dependence; Z88.2 Allergy status to sulfonamides
CPT/HCPCS: 36415; 71045; 71275; 80053; 83735; 83880; 84484; 85025; 87486; 87581; 87633; 93005; 93306; 93458; 96374; 99152; 99153; 99285; C1769; C1887; C1894; G0378; J1644; J2250; J2270; J2470; J3010; J3490; J7030; J7040; J9999; Q0163; Q9967

== ENCOUNTER → 2025-05-04 09:03 | Outpatient (BNVA) | payer MEDICAID, SELFPAY | PROVIDERS: PCP Clinical Nurse Specialist Adult Health; Visit Provider Clinical Nurse Specialist Adult Health | DX: E11.9 Type 2 diabetes mellitus without complications (principal) | CPT/HCPCS: 80061; 83036 ==